=== PATIENT | female | born 1955 | race Caucasian/White ===

== ENCOUNTER → 2016-12-16 | Outpatient (CLI) | payer BC, OTHER ==
[~2016-12-16] VITALS: Ht 162.6 cm; Wt 68.9 kg
[~2016-12-16] MED LIST: AMBIEN 5 MG TABL5 M1 PO; BUPROPION HCL150 M1 PO; CELEXA20 MG PO; IBUPROFEN 200200 M1 PO; MOBIC7.5 MG PO; REQUIP 1 MG TABL1 M1 PO
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
[2016-12-16 08:12] VITALS: BP 107/60
== END | disposition home or self-care (01) ==
LOC: PAIN 07:12
DX: M54.16 Radiculopathy, lumbar region (principal); E78.00 Pure hypercholesterolemia, unspecified; F32.89 Other specified depressive episodes; Z88.5 Allergy status to narcotic agent; Z87.81 Personal history of (healed) traumatic fracture; Z96.641 Presence of right artificial hip joint; Z98.890 Other specified postprocedural states

== ENCOUNTER → 2017-01-16 | Outpatient (CLI) | payer BC, OTHER ==
[~2017-01-16] VITALS: Ht 162.6 cm; Wt 67.6 kg
[~2017-01-16] MED LIST changes: +HYDROCODONE-AP1 EAC6 PO
--- NOTE | ~2017-01-16 | HPC ---
[facility] [place] [address] PAIN MANAGEMENT CONSULTATION Name: TAI DICKENS Room #: REG SRAVANTHI Familia#: [id number] Admission: 01/16/17 Attend Phys: Curtis Harrison MD Discharge: Date of : 53 Report #: [id number] THIS REPORT FOR: //name// CC: JOSIAS Harrison DATE OF SERVICE: 01/16/2017 Followup visit for low back pain with radiculopathy. The patient returns to pain clinic today with persistent symptoms of radiculopathy into the left leg. When I first saw her in consultation on 12/16/2016 she complained of symptoms in the right leg. Her MRI had shown us evidence of spinal stenosis at L4-L5 without neural foraminal stenosis. For the symptoms on the right I performed a right paramedian epidural steroid injection using midline translaminar approach. She had excellent response, in fact her right leg continues to do very well. About 2-3 weeks after the injection, she began experiencing similar symptoms; however, this time, they were on the left. They go all the way to the ankle and she scores them at worst at 9/10, gnawing, aching and shooting, these also follow the L5 distribution. Because of her good response to initial injection with a complete absence of pain at this time on the right, she would like to have another epidural injection. She continues to remain active. We discussed general activities. I have reviewed her medications which are meloxicam alternating with ibuprofen, zolpidem, Requip, bupropion, and Celexa. ALLERGIES: OXYCODONE causes nausea. PHYSICAL EXAMINATION: Pleasant 61-year-old. Blood pressure 122/74, heart rate 84, respirations 16. BMI is 25. Strength throughout the lower extremity is good. There is no evidence of foot drop. Deep tendon reflexes are diminished throughout the lower extremities and straight leg raising reproduces an L5 distribution radicular symptom. IMPRESSION: Low back pain with radiculopathy secondary to spinal stenosis, moderate at L4-L5. RECOMMENDATIONS: She does not want surgery. She would like to avoid medication and has been doing exercise. I think it is reasonable to receive another epidural injection today with hopes that we can continue to diminish her intense symptoms. [address] [address] PAIN MANAGEMENT CONSULTATION Name: TAI DICKENS Room #: REG SRAVANTHI Barbosa#: [id number] Admission: 01/16/17 Attend Phys: Curtis Harrison MD Discharge: Date of : 53 Report #: [id number] After informed consent, the patient was taken to fluoroscopic suite, placed prone, skin prepped with ChloraPrep, skin anesthetized over L4-L5. A 20-gauge Tuohy epidural needle was advanced in the left lateral recess using loss of resistance, no blood nor CSF aspirated. 1 mL of Omnipaque was injected with excellent spread of dye along the left lateral recess, it was then followed by 3 mL of 0.5% lidocaine mixed with 80 mg of triamcinolone. She tolerated the procedure well. She was observed for 45 minutes and discharged with a followup visit planned in the pain clinic in 1-2 months. No medications were ordered. By: [id number] Curtis Harrison MD /nt
[2017-01-16 08:12] VITALS: BP 122/74
== END | disposition home or self-care (01) ==
LOC: PAIN 06:52
DX: M48.061 Spinal stenosis, lumbar region without neurogenic claudication (principal); Z88.5 Allergy status to narcotic agent; Z98.890 Other specified postprocedural states